=== PATIENT | female | born 1935 | race Caucasian/White ===

== ENCOUNTER 2022-06-20 14:04 | Outpatient (CLI) | payer MEDICARE, OTHER | END 2022-06-20 14:05 | disposition home or self-care (01) | LOC: BICMAMMO 14:04 | PROVIDERS: ATTEND Internal Medicine | DX: Z08 Encounter for follow-up examination after completed treatment for malignant neoplasm (principal); Z85.3 Personal history of malignant neoplasm of breast | CPT/HCPCS: 77066; G0279 ==